=== PATIENT | male | born 1935 | race Two or more races ===

== ENCOUNTER 2018-07-15 13:55 | Emergency (ER) | payer MEDICARE, MEDICAID ==
[~2018-07-15] VITALS: Ht 177.8 cm; Wt 95.3 kg
[2018-07-15 13:56] VITALS: BP 144/72
[2018-07-15] MEDS ORDERED: Morphine Sulfate 4mg/ml Inj (IV USE ONLY) IVP ONE (14:15)
[2018-07-15 14:21] LABS: APPEARANCE,URINE TURBID; BASOPHILS % (AUTO) 2.1 % (0.0-2.0); BILIRUBIN, URINE NEGATIVE (NEGATIVE); EOSINOPHILS % (AUTO) 12.2 % (0.0-3.0); GLUCOSE, URINE (UA) NEGATIVE (NEGATIVE); HEMATOCRIT 37.1 % (42.0-52.0); HEMOGLOBIN 12.3 G/DL (14.2-18.0); KETONES,URINE 1+ (NEGATIVE); LEUKOCYTE ESTERASE ,URINE 3+ (NEGATIVE); LYMPHOCYTES % (AUTO) 17.8 % (20.0-45.0); MEAN CORPUSCULAR VOLUME 94 FL (80-99); NEUTROPHILS % (AUTO) 63.1 % (45.0-75.0); NITRITE,URINE NEGATIVE (NEGATIVE); PH,URINE 6 (4.5-8.0); PLATELET COUNT 404 K/UL (150-450); PROTEIN,URINE 3+ (NEGATIVE); RED BLOOD COUNT 3.92 M/UL (4.70-6.10); RED CELL DISTRIBUTION WIDTH 14.4 % (11.6-14.8); UROBILINOGEN,URINE 1 MG/DL (0.0-1.0); WHITE BLOOD COUNT 7.9 K/UL (4.8-10.8)
[2018-07-15 14:22] LABS: COLOR,URINE YELLOW
[2018-07-15 14:40] LABS: ANION GAP 11 mmol/L (5-15); BLOOD UREA NITROGEN 22 mg/dL (7-18); CALCIUM 8.8 MG/DL (8.5-10.1); CARBON DIOXIDE 21 MMOL/L (21-32); CHLORIDE 104 MMOL/L (98-107); CREATININE 1.7 MG/DL (0.55-1.30); POTASSIUM 4.2 MMOL/L (3.5-5.1); SODIUM 136 MMOL/L (136-145)
--- NOTE | 2018-07-15 14:42 | Emergency Room Report ---
History of Present Illness General Chief Complaint: Abdominal Pain Source: Patient, EMS Present Illness HPI 83-year-old male, coming from [facility], presenting with right-sided inguinal hernia. Patient states that he has had it for years. Today it came out about 4 hours ago and couldn't reduce back. No nausea no vomiting. Has had normal bowel movement today. Just complaining of pain to the inguinal hernia. Denies any other abdominal pain. No fever no chills no other complaints. Patient came in with an indwelling Gallardo, says that it was placed 2 weeks ago by his urologist. 4 BPH. Denies any dysuria or hematuria no fever no chills Allergies: Coded Allergies: UNABLE TO ASSESS (Unverified , 07/15/18) PT STATES ALLERGIC TO A MED BUT UNK NAME Patient History Past Medical History: see triage record Past Surgical History: none Pertinent Family History: none Reviewed Nursing Documentation: PMH: Agreed; PSxH: Agreed Nursing Documentation-PMH Past Medical History: No History, Except For Hx Cardiac Problems: Yes Hx Pacemaker: Yes Review of Systems All Other Systems: negative except mentioned in HPI Physical Exam Vital Signs Date Time Temp Pulse Resp B/P (MAP) Pulse Ox O2 Delivery O2 Flow Rate FiO2 07/15/18 13:37 98.0 90 18 128/78 95 Room Air 98.1 Sp02 EP Interpretation: reviewed, normal General Appearance: GCS 15, non-toxic, mild distress Head: normocephalic, atraumatic Eyes: bilateral eye normal inspection, bilateral eye PERRL, bilateral eye EOMI ENT: normal ENT inspection, normal pharynx, normal voice, moist mucus membranes Neck: normal inspection, full range of motion, supple Respiratory: normal inspection, lungs clear, normal breath sounds, no respiratory distress, no retraction, no wheezing, speaking full sentences, chest symmetrical Cardiovascular #1: normal inspection, regular rate, rhythm, no edema, normal capillary refill Cardiovascular #2: 2+ radial (R), 2+ radial (L) Gastrointestinal: other - Right inguinal hernia palpated, tender to palpation, moderate in size, otherwise abdomen is soft nontender throughout no guarding rigidity Genitourinary: other - Indwelling Gallardo Musculoskeletal: normal inspection, back normal, normal range of motion, non- tender Neurologic: normal inspection, alert, oriented x3, responsive, motor strength/ tone normal, sensory intact, normal gait, speech normal Psychiatric: normal inspection, judgement/insight normal, memory normal Skin: normal inspection, normal color, no rash, warm/dry, well hydrated, normal turgor Medical Decision Making Diagnostic Impression: Primary Impression: Inguinal hernia Additional Impressions: UTI (urinary tract infection) Renal insufficiency ER Course 83-year-old male with right-sided inguinal hernia not reducible for the last 4 hours DDX: Inguinal hernia, nonreducible disc but does not appear strangulated Plan: Obtain labs, reduce hernia ER course: Patient has remained stable during ED stay. He was placed in Trendelenburg, given ice on area, and given morphine. Hernia reduced spontaneously Repeat abdominal exam has been benign, no nausea no vomiting, tolerating by mouth no cp/sob, VSS +UTI, will rx abx +mild renal insufficiency, pt told to fu in 1 week with pcp for repeat Disposition: [facility] be [facility] Patient is instructed to follow up with their primary care doctor and general surgeon within 5 days. Strict return precautions discussed with patient such as severe worsening pain, intractable nausea vomiting, inability to reduce hernia again Please note that this Emergency Department Report was dictated using [employer]orb[employer] picker technology software, occasionally this can lead to erroneous entry secondary to interpretation by the dictation equipment EKG Diagnostic Results EP Interpretation: Yes Rate: normal Rhythm: NSR ST Segments: T-wave inversion aVL ASA given to patient: No Rhythm Strip EP Interpretation: Yes Rate: 73 Rhythm: NSR, no PVCs, no ectopy Laboratory Tests Test 07/15/18 14:00 White Blood Count 7.9 K/UL (4.8-10.8) Red Blood Count 3.92 M/UL (4.70-6.10) L Hemoglobin 12.3 G/DL (14.2-18.0) L Hematocrit 37.1 % (42.0-52.0) L Mean Corpuscular Volume 94 FL (80-99) Mean Corpuscular Hemoglobin 31.2 PG (27.0-31.0) H Mean Corpuscular Hemoglobin Concent 33.0 G/DL (32.0-36.0) Red Cell Distribution Width 14.4 % (11.6-14.8) Platelet Count 404 K/UL (150-450) Mean Platelet Volume 6.7 FL (6.5-10.1) Neutrophils (%) (Auto) 63.1 % (45.0-75.0) Lymphocytes (%) (Auto) 17.8 % (20.0-45.0) L Monocytes (%) (Auto) 5.0 % (1.0-10.0) Eosinophils (%) (Auto) 12.2 % (0.0-3.0) H Basophils (%) (Auto) 2.1 % (0.0-2.0) H Prothrombin Time 11.1 SEC (9.30-11.50) Prothrombin Time INR 1.1 (0.9-1.1) PTT 29 SEC (23-33) Urine Color Yellow Urine Appearance Turbid Urine pH 6 (4.5-8.0) Urine Specific [place] 1.015 (1.005-1.035) Urine Protein 3+ (NEGATIVE) H Urine Glucose (UA) Negative (NEGATIVE) Urine Ketones 1+ (NEGATIVE) H Urine Blood 5+ (NEGATIVE) H Urine Nitrite Negative (NEGATIVE) Urine Bilirubin Negative (NEGATIVE) Urine Urobilinogen 1 MG/DL (0.0-1.0) H Urine Leukocyte Esterase 3+ (NEGATIVE) H Urine RBC 20-30 /HPF (0 - 0) H Urine WBC 60-80 /HPF (0 - 0) H Urine Squamous Epithelial Cells Few /LPF (NONE/OCC) Urine Bacteria Many /HPF (NONE) H Sodium Level 136 MMOL/L (136-145) Potassium Level 4.2 MMOL/L (3.5-5.1) Chloride Level 104 MMOL/L (98-107) Carbon Dioxide Level 21 MMOL/L (21-32) Anion Gap 11 mmol/L (5-15) Blood Urea Nitrogen 22 mg/dL (7-18) H Creatinine 1.7 MG/DL (0.55-1.30) H Estimate Glomerular Filtration Rate mL/min (>60) Glucose Level 95 MG/DL (74-106) Lactic Acid Level 1.10 mmol/L (0.4-2.0) Calcium Level 8.8 MG/DL (8.5-10.1) Total Bilirubin 0.7 MG/DL (0.2-1.0) Aspartate Amino Transferase (AST) 27 U/L (15-37) Alanine Aminotransferase (ALT) 27 U/L (12-78) Alkaline Phosphatase 105 U/L (46-116) Total Protein 7.3 G/DL (6.4-8.2) Albumin 3.2 G/DL (3.4-5.0) L Globulin 4.1 g/dL Albumin/Globulin Ratio 0.8 (1.0-2.7) L Lipase 103 U/L (73-393) Last Vital Signs Date Time Temp Pulse Resp B/P (MAP) Pulse Ox O2 Delivery O2 Flow Rate FiO2 07/15/18 14:17 98.1 07/15/18 13:56 74 20 144/72 99 Room Air Disposition: XFER SNF Condition: Improved Scripts Cephalexin* (KEFLEX*) 500 Mg Capsule 500 MG ORAL EVERY 6 HOURS for 7 Days, #28 CAP Prov: Tj Cole M.D. 07/15/18 Patient Instructions: Hernia, Adult, [id number]-Awpr Additional Instructions: PLEASE SEE YOUR PCP WELL A GENERAL SURGEON OUTPATIENT Dr Clement [address] [facility] [id number], [place] [address] Tj Cole M.D. Jul 15, 2018 14:42
[2018-07-15 14:43] LABS: INR 1.1 (0.9-1.1)
[2018-07-15 14:46] LABS: ALANINE AMINOTRANSFERASE 27 U/L (12-78); ALBUMIN 3.2 G/DL (3.4-5.0); ALBUMIN/GLOBULIN RATIO 0.8 (1.0-2.7); ALKALINE PHOSPHATASE 105 U/L (46-116); ASPARTATE AMINO TRANSFERASE 27 U/L (15-37); BILIRUBIN,TOTAL 0.7 MG/DL (0.2-1.0)
[2018-07-15] MEDS ORDERED: CEPHALEXIN500 MG ORAL (14:54)
[2018-07-15 15:15] VITALS: BP 153/86
--- NOTE | 2018-07-16 15:14 | Cardiology Report ---
APPROVED REPORT EKG Measurement Heart [id number] Normal sinus rhythm Inferior infarct, age undetermined Abnormal ECG
== END 2018-07-15 15:26 | disposition home or self-care (01) ==
LOC: EDBD 13:55 → EMR 14:40
DX: K40.90 Unilateral inguinal hernia, without obstruction or gangrene, not specified as recurrent (principal); N39.0 Urinary tract infection, site not specified; N28.9 Disorder of kidney and ureter, unspecified; Z86.79 Personal history of other diseases of the circulatory system; Z95.0 Presence of cardiac pacemaker
CPT/HCPCS: 36415; 80053; 81003; 83605; 83690; 85025; 85610; 85730; 87086; 87181; 93005; 96374; 99284; J2270